=== PATIENT | female | born 1990 | race Caucasian/White ===

== ENCOUNTER 2018-01-04 04:37 | Inpatient (IN) | payer BC, OTHER ==
[2018-01-04] MEDS: LACTATED RINGERS 1,000 ML IV SCH ×5 (04:50→22:09)
[2018-01-04] MEDS ORDERED: CITRIC ACID/SODIUM CITRATE SOL PO SCH (05:30)
[2018-01-04] MEDS ORDERED: CLINDAMYCIN 150 MG/ML 600 MG in SODIUM CHLORIDE 0.9% 100 ML 100 ML IV SCH (05:30)
[2018-01-04] MEDS ORDERED: MORPHINE SULFATE 0.5 MG/ML SOL ONE (05:44)
[2018-01-04] MEDS ORDERED: ONDANSETRON HCL 4 MG/2 ML SOL ONE (05:45)
[2018-01-04] MEDS ORDERED: PHENYLEPHRINE HYDROCHLORIDE 10 MG/ML SOL ONE (05:45)
[2018-01-04] MEDS ORDERED: CEFAZOLIN SODIUM 1 GM PDS ONE (05:45)
[2018-01-04] MEDS ORDERED: OXYTOCIN 10000 MU/ML SOL ONE (05:45)
[2018-01-04] MEDS ORDERED: CLINDAMYCIN 150 MG/ML SOL ONE ×2 (06:06→12:16)
[2018-01-04] MEDS ORDERED: LACTATED RINGERS 1,000 ML with OXYTOCIN 10000 MU/ML 20 MU IV ONE (06:40)
[2018-01-04] MEDS ORDERED: METOCLOPRAMIDE HYDROCHLORIDE 5 MG/ML SOL ONE (07:14)
[2018-01-04] MEDS ORDERED: FLEET ENEMA PR PRN (07:43)
[2018-01-04] MEDS ORDERED: DIPHENHYDRAMINE 25 MG CAP PO PRN (07:43)
[2018-01-04] MEDS ORDERED: BISACODYL 10 MG SUP PR PRN (07:43)
[2018-01-04] MEDS ORDERED: METHYLERGONOVINE MALEATE 0.2 MG TAB PO PRN (07:43)
[2018-01-04] MEDS ORDERED: BENZOCAINE/MENTHOL 1 SPR TOP PRN (07:43)
[2018-01-04] MEDS ORDERED: WITCH HAZEL 1 EA PAD TOP PRN (07:43)
[2018-01-04] MEDS ORDERED: ONDANSETRON HCL 4 MG/2 ML SOL IV PRN (07:43)
[2018-01-04] MEDS ORDERED: TEMAZEPAM 15MG 15 MG CAP PO PRN (07:43)
[2018-01-04 08:28] LABS: APPEARANCE,URINE Clear; BILIRUBIN,URINE NEGATIVE (NEGATIVE); COLOR,URINE Yellow; GLUCOSE, URINE (UA) NEGATIVE (NEGATIVE); KETONES,URINE NEGATIVE (NEGATIVE); LEUKOCYTE ESTERASE ,URINE NEGATIVE (NEGATIVE); NITRATE,URINE NEGATIVE (NEGATIVE); OCCULT BLOOD,URINE NEGATIVE (NEG-TRACE); PH,URINE 7.5; UROBILINOGEN,URINE 0.2 (0.2-1.0 EU)
[2018-01-04 08:51] LABS: BACTERIA TRACE (< 1+); CRYSTALS NEGATIVE (0-3 AVE/HPF); EPITHELIAL CELLS 0-2 (SQUAMOUS); RBC,URINE 0-1 (0-3AV/HPF); WBC,URINE 0-1 (0-5AV/HPF)
[2018-01-04] MEDS ORDERED: DOCUSATE SODIUM 100 MG SGL PO SCH (09:00)
[2018-01-04] MEDS: CLINDAMYCIN 150 MG/ML 600 MG in SODIUM CHLORIDE 0.9% 100 ML 100 ML IV SCH ×2 (10:11→12:21)
[2018-01-04] MEDS: APAP/HYDROCODONE 325/5 TAB PO PRN ×2 (11:05→14:12)
[2018-01-04] MEDS: DOCUSATE SODIUM 100 MG SGL PO SCH ×2 (11:05→20:46)
[2018-01-04] MEDS: IBUPROFEN 600 MG TAB PO PRN (17:45)
[2018-01-04] MEDS: KETOROLAC TROMETHAMINE 30 MG/ML SOL IV PRN (20:46)
[2018-01-05] MEDS: APAP/HYDROCODONE 325/5 TAB PO PRN ×4 (01:05→23:32)
[2018-01-05] MEDS: KETOROLAC TROMETHAMINE 30 MG/ML SOL IV PRN (04:52)
[2018-01-05 08:35] LABS: HEMATOCRIT 30 % (35-47); HEMOGLOBIN 10.6 gm/dl (12.0-15.5); LYMPHOCYTES % (AUTO) 6.74 % (10-50); MEAN CORPUSCULAR HEMOGLOBIN 31.1 pg (27.0-32.0); MEAN CORPUSCULAR HGB CONC 34.7 gm/dl (32.0-36.0); MEAN CORPUSCULAR VOLUME 90 fL (81-99); NEUTROPHILS % (AUTO) 87.2 % (37-80)
[2018-01-05 08:36] LABS: BASOPHILS % (AUTO) 1 % (0-3); EOSINOPHILS % (AUTO) 1 % (0-9); MONOCYTES % (AUTO) 4.7 % (0-12)
[2018-01-05] MEDS: DOCUSATE SODIUM 100 MG SGL PO SCH ×2 (09:00→20:43)
[2018-01-05] MEDS: LACTATED RINGERS 1,000 ML IV SCH (09:34)
[2018-01-05] MEDS: IBUPROFEN 600 MG TAB PO PRN (12:57)
[2018-01-06] MEDS: IBUPROFEN 600 MG TAB PO PRN ×3 (02:53→19:55)
[2018-01-06 07:22] LABS: BASOPHILS % (AUTO) 1 % (0-3); EOSINOPHILS % (AUTO) 2 % (0-9); HEMATOCRIT 32 % (35-47); LYMPHOCYTES % (AUTO) 10.9 % (10-50); MEAN CORPUSCULAR HEMOGLOBIN 31.2 pg (27.0-32.0); MEAN CORPUSCULAR HGB CONC 34.8 gm/dl (32.0-36.0); MEAN CORPUSCULAR VOLUME 90 fL (81-99); MONOCYTES % (AUTO) 5.1 % (0-12)
[2018-01-06 07:52] VITALS: RESP 18
[2018-01-06] MEDS: DOCUSATE SODIUM 100 MG SGL PO SCH ×2 (09:27→21:31)
[2018-01-06] MEDS: APAP/HYDROCODONE 325/5 TAB PO PRN ×3 (09:27→21:31)
[2018-01-06] MEDS: FOLIC ACID 1 MG TAB PO SCH (10:16)
[2018-01-06] MEDS: MULTIVITAMIN2 1 EA TAB PO SCH (10:16)
[2018-01-06 22:54] VITALS: O2SAT 100
[2018-01-07] MEDS: IBUPROFEN 600 MG TAB PO PRN (05:34)
[2018-01-07 07:54] VITALS: BP 118/75; PULSE 86; TEMP 97.5
[2018-01-07] MEDS: DOCUSATE SODIUM 100 MG SGL PO SCH (09:19)
[2018-01-07] MEDS: FOLIC ACID 1 MG TAB PO SCH (09:21)
[2018-01-07] MEDS: MULTIVITAMIN2 1 EA TAB PO SCH (09:21)
== END 2018-01-07 12:50 | disposition home or self-care (01) | DRG 540 ==
LOC: OB 04:37 → EDSTATUS 06:30
PROVIDERS: ADMIT Family Medicine; ATTEND Family Medicine
PROC: 10D00Z1 Extraction of Products of Conception, Low, Open Approach (ICD-10-PCS; principal; 2018-01-04 06:30)
DX: O82 Encounter for cesarean delivery without indication (principal); Z37.0 Single live birth; Z3A.39 39 weeks gestation of pregnancy
CPT/HCPCS: 36415; 59025; 81001; 85025; 99070; J0690; J1885; J2274; J2405; J2590; J2765; J3490; A9270-GY; J2370